=== PATIENT | male | born 1985 | race Caucasian/White ===

== ENCOUNTER 2019-08-21 17:47 | Emergency (ER) | payer SELFPAY ==
[~2019-08-21] VITALS: Ht 172.7 cm; Wt 77.1 kg
[2019-08-21 17:56] VITALS: BP 141/91
== END 2019-08-21 20:15 | disposition left against medical advice (07) ==
LOC: MED 17:47
DX: N48.89 Other specified disorders of penis (principal); Z53.21 Procedure and treatment not carried out due to patient leaving prior to being seen by health care provider